=== PATIENT | female | born 1960 | race Caucasian/White ===

== ENCOUNTER → 2018-01-01 | Outpatient (CLI) | payer OTHER ==
[~2018-01-01] MED LIST: AVALIDE 150-121 EACH PO; DIATRIZOATE MEGL/DIATRIZOA SOD 30 ML BTL PO ONE; IOPAMIDOL 370 MG/ML 200 ML INFUS..BTL INJ ONE; LOPRESSOR25 MG PO; SODIUM CHLORIDE 0.9% 50ML 50 ML ONE
[2018-01-01 11:02] LABS: BLOOD UREA NITROGEN 10 mg/dL (7-26); BUN/CREATININE RATIO 13 (6-25); CREATININE, SERUM 0.78 mg/dL (0.57-1.11); EST GLOMERULAR FILTRATION RATE > 60 ML/MIN (60-)
--- NOTE | 2018-01-01 12:07 | Diagnostic Imaging Report ---
PROCEDURE: CT ABDOMEN AND PELVIS WITH CONTRAST TECHNIQUE: The abdomen and pelvis were scanned utilizing a multidetector helical scanner from the diaphragm to the lesser trochanter after the IV administration of 100 cc of Isovue 370 and the oral administration of Gastroview. Coronal and sagittal multiplanar reformations were obtained. DLP: 671.21 mGy-cm COMPARISON: None. INDICATIONS: LOWER ABDOMEN PAIN FINDINGS: LOWER THORAX: Normal. HEPATOBILIARY: Diffuse hypoattenuation of the liver, compatible with hepatic steatosis. Borderline hepatomegaly measuring 16.5 cm in the right midclavicular line. No focal hepatic lesions. No biliary ductal dilatation. SPLEEN: No splenomegaly. PANCREAS: No focal masses or ductal dilatation. ADRENALS: No adrenal nodules. KIDNEYS/URETERS: No hydronephrosis, stones, or solid mass lesions. The a few tiny hypodensities in the kidneys are too small to characterize but statistically likely cysts. PELVIC ORGANS/BLADDER: Tubal ligation clips. PERITONEUM / RETROPERITONEUM: No free air or fluid. LYMPH NODES: Borderline enlarged portacaval node measuring 1 cm, nonspecific. VESSELS: Retroaortic left renal vein. No abdominal aortic aneurysm. GI TRACT: No distention or wall thickening. Appendectomy. BONES AND SOFT TISSUES: Moderate facet arthrosis of the lower lumbar spine. Grade 1 anterolisthesis of L4 and L5 without spondylolysis. IMPRESSION: 1. No acute abnormalities in the abdomen or pelvis. 2. Hepatic steatosis. Dictated by: Bean Kelly M.D. on 01/01/2018 at 12:09 Electronically approved by: Bean Kelly M.D. on 01/01/2018 at 12:09
== END ==
LOC: CT 10:26
PROVIDERS: ATTEND Internal Medicine
DX: R10.84 Generalized abdominal pain (principal)
CPT/HCPCS: 36415; 74177; 82565; 84520; Q9967